=== PATIENT | female | born 1940 | race Caucasian/White ===

== ENCOUNTER 2022-10-22 21:25 | Emergency (ER) | payer MEDICARE, BC ==
--- NOTE | 2022-10-23 00:20 | ED ---
Eye Problem HPI - General Chief complaint: Neuro Symptoms/Deficit Stated complaint: vision issues Time Seen by Provider: 10/22/22 23:50 Source: patient, RN notes reviewed, old records reviewed Mode of arrival: ambulatory Limitations: no limitations - History of Present Illness Initial comments: This is a 2-year-old female to the emergency department for evaluation. Patient presents today for bilateral shoulders eye floaters in for is with history of similar issue before. Patient has had cataract surgery. Patient does follow-up with strategy manager. Patient denies any trauma fever or loss of vision. No other complaints currently patient has no complaints no floaters MD chief complaint: vision change, other (Bilateral floaters in vision) -: hour(s) Onset Description: gradual Location: both eyes Place: home If Injury: none Eye Symptoms: blurry vision Severity: mild Severity scale (1-10): 3 Consistency: intermittent, now resolved Associated Symptoms: none Treatments Prior to Arrival: none - Related Data Patient Tetanus UTD: No Allergies Allergy/AdvReac Type Severity Reaction Status Date / Time azithromycin Allergy Rash/Hives Verified 10/22/22 21:35 cephalexin Allergy Rash/Hives Verified 10/22/22 21:35 Penicillins Allergy Rash/Hives Verified 10/22/22 21:35 morphine AdvReac Vomiting Verified 10/22/22 21:35 Review of Systems ROS Statement: Those systems with pertinent positive or pertinent negative responses have been documented in the HPI. ROS Other: All systems not noted in ROS Statement are negative. Past Medical History Additional Past Medical History / Comment(s): vertigo History of Any Multi-Drug Resistant Organisms: None Reported Past Surgical History: Joint Replacement Additional Past Surgical History / Comment(s): cataract surgery Past Drug Use History: None Reported General Exam Limitations: no limitations General appearance: alert, in no apparent distress Head exam: Present: atraumatic, normocephalic, normal inspection Eye exam: Present: normal appearance, PERRL, EOMI. Absent: scleral icterus, conjunctival injection, periorbital swelling ENT exam: Present: normal exam, mucous membranes moist Neck exam: Present: normal inspection. Absent: tenderness, meningismus, lymphadenopathy Respiratory exam: Present: normal lung sounds bilaterally. Absent: respiratory distress, wheezes, rales, rhonchi, stridor Cardiovascular Exam: Present: regular rate, normal rhythm, normal heart sounds. Absent: systolic murmur, diastolic murmur, rubs, gallop, clicks GI/Abdominal exam: Present: soft, normal bowel sounds. Absent: distended, tenderness, guarding, rebound, rigid Extremities exam: Present: normal inspection, full ROM, normal capillary refill. Absent: tenderness, pedal edema, joint swelling, calf tenderness Back exam: Present: normal inspection Neurological exam: Present: alert, oriented X3, CN II-XII intact Psychiatric exam: Present: normal affect, normal mood Skin exam: Present: warm, dry, intact, normal color. Absent: rash Course Vital Signs 10/22/22 21:29 Temperature 98.4 F Pulse Rate 89 Respiratory 20 Rate Blood Pressure 143/99 O2 Sat by Pulse 94 L Oximetry - Reevaluation(s) Reevaluation #1: 10/23/22 00:50 Medical records reviewed Reevaluation #2: 10/23/22 00:50 Patient remains asymptomatic Reevaluation #3: 10/23/22 00:50 Patient informed results questions answered Reevaluation #4: 10/23/22 00:50 Was pt. sent in by a medical professional or institution? @ -no Did you speak to anyone other than the patient for history? @ -no Did you review nursing and triage notes? @ -agree Were old charts reviewed? @ -yes Differential Diagnosis? @ -prior EKG interpreted by me (3pts min.)? @ -yes X-rays interpreted by me (1pt min.)? @ -yes CT interpreted by me (1pt min.)? @ -no U/S interpreted by me (1pt. min.)? @ -no What testing was considered but not performed? (CT, X-rays, U/S, labs)? Why? @ -no What meds were considered but not given? Why? @ -no Did you discuss the management of the patient with other professionals? @ -no Did you reconcile home meds? @ -no Was smoking cessation discussed for >3mins.? @ -no Was critical care preformed (if so, how long)? @ -no Were there social determinants of health that impacted care today? How? (Homelessness, low income, unemployed, alcoholism, drug addiction, transportation, low edu. Level, literacy, decrease access to med. care, [facility], rehab)? @ -no Was there de-escalation of care discussed even if they declined? (Discuss DNR or withdrawal of care, Hospice)? @ -no What co-morbidities impacted this encounter? (DM, HTN, Smoking, COPD, CAD, Cancer, CVA, Hep., AIDS, mental health diagnosis, sleep apnea, morbid obesity)? @ -none Was patient admitted / discharged? @ - Undiagnosed new problem with uncertain prognosis? @ -no Drug Therapy requiring intensive monitoring for toxicity (Heparin, Nitro, Insulin, Cardizem)? @ -no Were any procedures done? @ -no Diagnosis/symptom? @ - Acute, or Chronic, or Acute on Chronic? @ -acute Uncomplicated (without systemic symptoms) or Complicated (systemic symptoms)? @ -complicated Side effects of treatment? @ -no Exacerbation, Progression, or Severe Exacerbation] @ -no Poses a threat to life or bodily function? @ -yes - Consultations Consultation #1: Patient scheduled to see strategy manager tomorrow Medical Decision Making - Medical Decision Making 82 female bilateral vision floaters, history of eye issues and cataract surgery, follows with strategy manager. No vision loss and currently no complaints. Patient can be discharged home Disposition Clinical Impression: Blurry vision, bilateral, Vitreous floaters of both eyes Disposition: HOME SELF-CARE Condition: Good Instructions (If sedation given, give patient instructions): Visual Floaters (ED) Is patient prescribed a controlled substance at d/c from ED?: No Referrals: Bonnie Dobbs DO [Primary Care Provider] - 1-2 days Alexander Odell MD [STAFF PHYSICIAN] - 1-2 days Time of Disposition: 00:20
[2022-10-23 01:02] VITALS: BP 148/91; PULSE 74; RESP 16; TEMP 97.8
== END 2022-10-23 01:02 | disposition home or self-care (01) ==
LOC: EC 21:25
DX: H43.393 Other vitreous opacities, bilateral (principal); Z88.0 Allergy status to penicillin; Z88.5 Allergy status to narcotic agent; Z88.8 Allergy status to other drugs, medicaments and biological substances
CPT/HCPCS: 99283